=== PATIENT | male | born 1965 | race Two or more races ===

== ENCOUNTER 2021-10-06 13:16 | Inpatient (IN) | payer MEDICAID, OTHER ==
[~2021-10-06] VITALS: Ht 175.3 cm; Wt 117.5 kg
[2021-10-06] MEDS ORDERED: GLUCAGON HYDROCHLORIDE (RDNA) 1 MG VIAL IV ONE (14:15)
[2021-10-06 14:30] LABS: Lymphocytes # (auto) 2.2 10 ^3/uL (0.4-5.4); Mean Corpuscular Volume 79.6 fL (80.0-100.0); Monocytes # (auto) 0.9 10 ^3/uL (0-1.3)
[2021-10-06 14:31] LABS: Basophils # (auto) 0.1 10 ^3/uL (0-0.2); Basophils % (auto) 0.6 % (0.0-2.0); Eosinophils # (auto) 0.2 10 ^3/uL (0-0.8); Eosinophils % (auto) 1.2 % (0.0-7.0); Hematocrit 38.6 % (41.0-53.0); Hemoglobin 12.6 g/dL (13.5-17.5); Mean Corpuscular Hgb Conc. 32.7 g/dL (32.0-36.0); Monocytes % (auto) 7.4 % (0.0-12.0); Neutrophils # (auto) 9.5 10 ^3/uL (1.6-8.6); Neutrophils % (auto) 73.8 % (37.0-80.0); Nucleated Red Blood Cells % 0.1 %; Red Blood Cells 4.85 10^6/uL (4.5-5.90); Red Cell Distribution Width 16.4 % (11.8-14.3); White Blood Cell 12.8 10^3/uL (4.4-10.8)
[2021-10-06 14:40] LABS: Albumin 3.1 g/dL (3.4-5.0); Anion Gap 8 (5-15); BUN/Creatinine Ratio 18.7; Blood Urea Nitrogen 25 mg/dL (7-18); Calcium 8.8 mg/dL (8.5-10.1); Carbon Dioxide 24 mmol/L (21-32); Chloride 107 mmol/L (98-107); GFR African American 71 mL/min; GFR Non-African American 59 mL/min; Glucose 139 mg/dL (74-106); Magnesium 2.4 mg/dL (1.6-2.6); Potassium 4.3 mmol/L (3.5-5.1); Sodium 139 mmol/L (136-145)
[2021-10-06 14:49] LABS: Alanine Aminotransferase 133 U/L (16-61); Alkaline Phosphatase 104 U/L (45-117); Aspartate Aminotransferase 56 U/L (15-37); Bilirubin, Total 0.3 mg/dL (0.2-1.0); Total Protein 7.3 g/dL (6.4-8.2)
[2021-10-06] MEDS ORDERED: NITROGLYCERIN 0.4 MG SL TAB SL PRN (15:45)
[2021-10-06] MEDS ORDERED: hydrALAZINE HCL 20 MG/ML VL IV PRN (15:45)
[2021-10-06] MEDS: DOPamine 1600MCG/ML D5W 250 ML IV SCH (16:10)
[2021-10-06] MEDS ORDERED: NIFEdipine ER 30 MG TAB PO ONE (16:45)
[2021-10-06] MEDS ORDERED: LACTATED RINGER'S 1,000 ML IV ONE (16:45)
[2021-10-06] MEDS: SODIUM CHLORIDE 0.9% 1,000 ML IV SCH (17:31)
[2021-10-06] MEDS ORDERED: MORPHINE SULFATE INJ 2 MG/ml SYRG IV PRN (18:15)
[2021-10-06] MEDS ORDERED: LORazepam 0.5 MG TAB PO PRN (18:15)
[2021-10-06 18:45] VITALS: BP 144/63
[2021-10-06] MEDS ORDERED: IPRATROPIUM BROM 0.5 MG/2.5ML INH SOL NEB PRN (19:45)
[2021-10-06 20:06] LABS: Magnesium 2.2 mg/dL (1.6-2.6); Phosphorus 3.6 mg/dL (2.5-4.90)
[2021-10-06 21:06] LABS: Hepatitis C Antibody Negative (Negative)
[2021-10-06 21:07] LABS: Hepatitis A Ab IgM Negative; Hepatitis B Core IgM Negative
[2021-10-06] MEDS ORDERED: IPRATROPIUM BROM 0.5 MG/2.5ML INH SOL NEB SCH (22:00)
[2021-10-06] MEDS ORDERED: ATORVASTATIN 20 MG TAB PO SCH (22:00)
[2021-10-06 22:30] VITALS: BP 131/41
[2021-10-06 22:45] VITALS: BP 129/45
[2021-10-06 23:00] VITALS: BP_SYST 125; BP_SYST 131; BP_DIAS 41
[2021-10-06 23:15] VITALS: BP 133/50
[2021-10-06 23:45] VITALS: BP 125/44
[2021-10-07] VITALS (89 sets, daily range): BP systolic 115–155; BP diastolic 35–77
[2021-10-07] MEDS: DOPamine 1600MCG/ML D5W 250 ML IV SCH ×6 (00:07→22:54)
[2021-10-07 04:04] LABS: Basophils # (auto) 0.1 10 ^3/uL (0-0.2); Eosinophils # (auto) 0 10 ^3/uL (0-0.8); Neutrophils # (auto) 19.4 10 ^3/uL (1.6-8.6); White Blood Cell 23.1 10^3/uL (4.4-10.8)
[2021-10-07 04:08] LABS: Basophils % (auto) 0.3 % (0.0-2.0); Hematocrit 36.4 % (41.0-53.0); Hemoglobin 12.3 g/dL (13.5-17.5); Lymphocytes # (auto) 1.8 10 ^3/uL (0.4-5.4); Lymphocytes % (auto) 7.9 % (10.0-50.0); Mean Corpuscular Hemoglobin 26.8 pg (28.0-32.0); Mean Corpuscular Hgb Conc. 33.8 g/dL (32.0-36.0); Mean Corpuscular Volume 79.2 fL (80.0-100.0); Monocytes # (auto) 1.9 10 ^3/uL (0-1.3); Monocytes % (auto) 8.1 % (0.0-12.0); Neutrophils % (auto) 83.7 % (37.0-80.0); Nucleated Red Blood Cells % 0.1 %; Red Cell Distribution Width 16.6 % (11.8-14.3)
[2021-10-07 04:23] LABS: Magnesium 2.2 mg/dL (1.6-2.6); Potassium 4.7 mmol/L (3.5-5.1)
[2021-10-07 04:34] LABS: BUN/Creatinine Ratio 18.8; Bilirubin, Total 0.4 mg/dL (0.2-1.0); CRP High Sensitivity 1.46 mg/dL (< 0.3); Calcium 8.4 mg/dL (8.5-10.1); Phosphorus 4.5 mg/dL (2.5-4.90); Total Protein 7.2 g/dL (6.4-8.2)
[2021-10-07 04:35] LABS: INR 1.08 (0.9-1.15); Partial Thromboplastin Time 26.4 sec (23.6-33.0)
[2021-10-07 04:38] LABS: Thyroid Stimulating Hormone 0.48 uIU/mL (0.358-3.74)
[2021-10-07] MEDS: ONDANSETRON HCL 4 MG/2 ML VIAL IV PRN ×2 (05:47→21:30)
[2021-10-07] MEDS ORDERED: FUROSEMIDE 20 MG/2 ML VIAL IV SCH (06:00)
[2021-10-07] MEDS ORDERED: POTASSIUM CHL 20MEQ/100ML 100 ML IV SCH (07:45)
[2021-10-07] MEDS: cefTRIAXone 1GM/50ML D5W 50 ML IV SCH (08:57)
[2021-10-07] MEDS: SODIUM CHLORIDE 0.9% 1,000 ML IV SCH (09:25)
[2021-10-07] MEDS: ASPirin 81 mg TAB PO SCH (10:00)
[2021-10-07] MEDS: ENOXAPARIN SOD 40 MG/0.4 ML SYRINGE SC SCH (10:00)
[2021-10-07] MEDS: NIFEdipine ER 30 MG TAB PO SCH (10:00)
[2021-10-07] MEDS: AZITHROMYCIN 500MG/ 250ML 250 ML IV SCH (10:09)
[2021-10-07] MEDS: FAMOTIDINE (10MG/ML) 2ML VL IV SCH (10:09)
[2021-10-07] MEDS ORDERED: OPTISON 3ml Vial for INJ IV ONE (10:37)
[2021-10-07] MEDS ORDERED: DEXTROSE (50%) 50ML SYRG IV PRN (11:15)
[2021-10-07] MEDS: ACCU-CHEK COMFORT CURVE STRIP VI SCH ×3 (12:00→23:46)
[2021-10-07] MEDS: InsuLIN REG 1unit/0.01ml Soln (100units/ml) SC SCH ×3 (12:42→23:47)
[2021-10-07 13:22] LABS: Urine Bacteria FEW /hpf (None Seen); Urine Blood Negative /uL (Negative); Urine Hyaline Cast MOD /lpf (0 - 2); Urine WBC 2 /hpf (0 - 3)
[2021-10-07 13:41] LABS: Amphetamine Screen, Urine NEGATIVE (NEGATIVE); Barbiturate Scree,Urine NEGATIVE (NEGATIVE); Benzodiazephine Screen, Urine NEGATIVE (NEGATIVE); Cannabinoid Screen, Urine NEGATIVE (NEGATIVE); Cocaine Screen, Urine NEGATIVE (NEGATIVE); Opiate Scree,Urine NEGATIVE (NEGATIVE); Phencyclidine Screen, Urine NEGATIVE (NEGATIVE)
[2021-10-07] MEDS ORDERED: INSREGI SC (15:02)
[2021-10-07] MEDS ORDERED: ASPI-543 PO (15:05)
[2021-10-07] MEDS ORDERED: SIMV-8 PO (15:05)
[2021-10-07] MEDS ORDERED: HYDR12.56 PO (15:05)
[2021-10-07] MEDS ORDERED: BENA40TA8 PO (15:07)
[2021-10-07] MEDS ORDERED: AMLO-489 PO (15:07)
[2021-10-07] MEDS ORDERED: METF-370 PO (15:10)
[2021-10-07] MEDS: MORPHINE SULFATE INJ 2 MG/ml SYRG IV PRN (21:25)
[2021-10-07] MEDS ORDERED: FUROSEMIDE 20 MG/2 ML VIAL IV ONE (22:15)
[2021-10-07] MEDS ORDERED: FUROSEMIDE 20 MG/2 ML VIAL ONE (22:18)
[2021-10-08] VITALS (65 sets, daily range): BP systolic 94–170; BP diastolic 30–75
[2021-10-08] MEDS: DOPamine 1600MCG/ML D5W 250 ML IV SCH ×2 (01:47→07:38)
[2021-10-08 03:56] LABS: Basophils # (auto) 0 10 ^3/uL (0-0.2); Basophils % (auto) 0.2 % (0.0-2.0); Eosinophils # (auto) 0 10 ^3/uL (0-0.8); Eosinophils % (auto) 0.1 % (0.0-7.0); Neutrophils % (auto) 86.9 % (37.0-80.0)
[2021-10-08 03:59] LABS: Hematocrit 36.2 % (41.0-53.0); Hemoglobin 12.1 g/dL (13.5-17.5); Mean Corpuscular Hemoglobin 26.1 pg (28.0-32.0); Mean Corpuscular Hgb Conc. 33.4 g/dL (32.0-36.0); Mean Corpuscular Volume 78.3 fL (80.0-100.0); Monocytes # (auto) 1.5 10 ^3/uL (0-1.3); Monocytes % (auto) 7.8 % (0.0-12.0); Neutrophils # (auto) 17.1 10 ^3/uL (1.6-8.6); Red Blood Cells 4.62 10^6/uL (4.5-5.90); Red Cell Distribution Width 16.4 % (11.8-14.3); White Blood Cell 19.7 10^3/uL (4.4-10.8)
[2021-10-08] MEDS: ONDANSETRON HCL 4 MG/2 ML VIAL IV PRN (04:19)
[2021-10-08 04:21] LABS: Albumin 2.8 g/dL (3.4-5.0); BUN/Creatinine Ratio 20.5; Calcium 8.4 mg/dL (8.5-10.1); Potassium 4.9 mmol/L (3.5-5.1)
[2021-10-08 04:24] LABS: Bilirubin, Total 0.3 mg/dL (0.2-1.0); Total Protein 7.1 g/dL (6.4-8.2)
[2021-10-08] MEDS: ACCU-CHEK COMFORT CURVE STRIP VI SCH ×4 (06:03→23:31)
[2021-10-08] MEDS: InsuLIN REG 1unit/0.01ml Soln (100units/ml) SC SCH ×4 (06:03→23:30)
[2021-10-08] MEDS: MORPHINE SULFATE INJ 2 MG/ml SYRG IV PRN (07:06)
[2021-10-08] MEDS: cefTRIAXone 1GM/50ML D5W 50 ML IV SCH (08:32)
[2021-10-08] MEDS ORDERED: FUROSEMIDE 20 MG/2 ML VIAL IV ONE (09:30)
[2021-10-08] MEDS: ASPirin 81 mg TAB PO SCH (10:00)
[2021-10-08] MEDS: NIFEdipine ER 30 MG TAB PO SCH (10:00)
[2021-10-08] MEDS: ENOXAPARIN SOD 40 MG/0.4 ML SYRINGE SC SCH (10:00)
[2021-10-08] MEDS: FAMOTIDINE (10MG/ML) 2ML VL IV SCH (10:06)
[2021-10-08] MEDS: AZITHROMYCIN 500MG/ 250ML 250 ML IV SCH (10:06)
[2021-10-08] MEDS ORDERED: LIDOCAINE 2%HCL (LOCAL ANESTH.) INJ 10ml MDV ONE (14:11)
[2021-10-08] MEDS ORDERED: VANCOMYCIN HCL 1000 MG VL ONE (14:14)
[2021-10-08] MEDS ORDERED: VANCOMYCIN 1GM/250ML 250 ML IV ONE (14:15)
[2021-10-08] MEDS ORDERED: MIDAZOLAM HCL 2MG/2ML 2ml VIAL (1mg/ml) ONE (14:15)
[2021-10-08] MEDS ORDERED: fentaNYL CITRATE 100 MCG/2 ML VL ONE (14:15)
[2021-10-08] MEDS: guaiFENesin 200 MG/10 ML UD PO PRN (19:15)
[2021-10-08] MEDS: HYDROcodone-ACET 5/325MG TAB PO PRN (23:36)
[2021-10-09] VITALS (14 sets, daily range): BP systolic 104–148; BP diastolic 45–68
[2021-10-09 04:19] LABS: Basophils # (auto) 0.1 10 ^3/uL (0-0.2); Basophils % (auto) 0.4 % (0.0-2.0); Eosinophils # (auto) 0.1 10 ^3/uL (0-0.8); Eosinophils % (auto) 0.9 % (0.0-7.0); Hematocrit 32.5 % (41.0-53.0); Hemoglobin 10.7 g/dL (13.5-17.5); Lymphocytes # (auto) 1.7 10 ^3/uL (0.4-5.4); Lymphocytes % (auto) 14.6 % (10.0-50.0); Mean Corpuscular Hemoglobin 26.1 pg (28.0-32.0); Monocytes # (auto) 0.9 10 ^3/uL (0-1.3); Monocytes % (auto) 7.6 % (0.0-12.0); Neutrophils # (auto) 8.9 10 ^3/uL (1.6-8.6); Neutrophils % (auto) 76.5 % (37.0-80.0); Red Blood Cells 4.11 10^6/uL (4.5-5.90); Red Cell Distribution Width 16.4 % (11.8-14.3); White Blood Cell 11.7 10^3/uL (4.4-10.8)
[2021-10-09 04:50] LABS: BUN/Creatinine Ratio 23.5; Calcium 8.3 mg/dL (8.5-10.1); Potassium 4.4 mmol/L (3.5-5.1)
[2021-10-09] MEDS: InsuLIN REG 1unit/0.01ml Soln (100units/ml) SC SCH ×4 (06:00→23:17)
[2021-10-09] MEDS: ACCU-CHEK COMFORT CURVE STRIP VI SCH ×4 (06:07→23:05)
[2021-10-09] MEDS: HYDROcodone-ACET 5/325MG TAB PO PRN ×2 (06:10→18:28)
[2021-10-09] MEDS: ASPirin 81 mg TAB PO SCH (09:50)
[2021-10-09] MEDS: cefTRIAXone 1GM/50ML D5W 50 ML IV SCH (09:50)
[2021-10-09] MEDS: ENOXAPARIN SOD 40 MG/0.4 ML SYRINGE SC SCH (09:50)
[2021-10-09] MEDS: AZITHROMYCIN 500MG/ 250ML 250 ML IV SCH (09:50)
[2021-10-09] MEDS: NIFEdipine ER 30 MG TAB PO SCH (09:51)
[2021-10-09] MEDS: FAMOTIDINE (10MG/ML) 2ML VL IV SCH (09:51)
[2021-10-09] MEDS ORDERED: FUROSEMIDE 20 MG/2 ML VIAL IV ONE (13:30)
[2021-10-09] MEDS ORDERED: ALBUTEROL SULF 2.5 MG/0.5ML(0.5%) NEB SOLN NEB PRN (13:30)
[2021-10-09] MEDS: guaiFENesin 200 MG/10 ML UD PO PRN (19:56)
[2021-10-10] MEDS: guaiFENesin 200 MG/10 ML UD PO PRN ×2 (04:36→19:49)
[2021-10-10 04:53] VITALS: BP 143/70
[2021-10-10] MEDS: InsuLIN REG 1unit/0.01ml Soln (100units/ml) SC SCH ×4 (05:06→23:46)
[2021-10-10] MEDS: ACCU-CHEK COMFORT CURVE STRIP VI SCH ×3 (05:06→18:00)
[2021-10-10 05:30] LABS: Eosinophils # (auto) 0.2 10 ^3/uL (0-0.8); Eosinophils % (auto) 2.4 % (0.0-7.0); Hemoglobin 11.5 g/dL (13.5-17.5); Monocytes # (auto) 0.7 10 ^3/uL (0-1.3); Neutrophils # (auto) 6.9 10 ^3/uL (1.6-8.6); Nucleated Red Blood Cells % 0.1 %
[2021-10-10 05:31] LABS: Basophils # (auto) 0.1 10 ^3/uL (0-0.2); Basophils % (auto) 0.8 % (0.0-2.0); Hematocrit 33.3 % (41.0-53.0); Lymphocytes # (auto) 1.3 10 ^3/uL (0.4-5.4); Lymphocytes % (auto) 13.6 % (10.0-50.0); Mean Corpuscular Hemoglobin 26.9 pg (28.0-32.0); Mean Corpuscular Hgb Conc. 34.5 g/dL (32.0-36.0); Monocytes % (auto) 7.6 % (0.0-12.0); Neutrophils % (auto) 75.6 % (37.0-80.0); Red Blood Cells 4.26 10^6/uL (4.5-5.90); Red Cell Distribution Width 16.5 % (11.8-14.3); White Blood Cell 9.2 10^3/uL (4.4-10.8)
[2021-10-10 05:49] LABS: BUN/Creatinine Ratio 25.3; Calcium 8.6 mg/dL (8.5-10.1); Magnesium 2.5 mg/dL (1.6-2.6); Potassium 4.1 mmol/L (3.5-5.1)
[2021-10-10 08:41] VITALS: BP 140/63
[2021-10-10] MEDS: cefTRIAXone 1GM/50ML D5W 50 ML IV SCH (09:14)
[2021-10-10] MEDS: NIFEdipine ER 30 MG TAB PO SCH (11:31)
[2021-10-10] MEDS: FAMOTIDINE (10MG/ML) 2ML VL IV SCH (11:31)
[2021-10-10] MEDS: ENOXAPARIN SOD 40 MG/0.4 ML SYRINGE SC SCH (11:31)
[2021-10-10] MEDS: AZITHROMYCIN 500MG/ 250ML 250 ML IV SCH (11:32)
[2021-10-10] MEDS: ASPirin 81 mg TAB PO SCH (11:32)
[2021-10-10 13:00] VITALS: BP 139/65
[2021-10-10 17:00] VITALS: BP 139/69
[2021-10-10 22:00] VITALS: BP 140/68
[2021-10-11 05:00] VITALS: BP 153/72
[2021-10-11] MEDS: InsuLIN REG 1unit/0.01ml Soln (100units/ml) SC SCH ×3 (05:17→17:46)
[2021-10-11] MEDS: ACCU-CHEK COMFORT CURVE STRIP VI SCH ×4 (05:17→17:18)
[2021-10-11] MEDS: guaiFENesin 200 MG/10 ML UD PO PRN (05:18)
[2021-10-11 09:00] VITALS: BP 143/69
[2021-10-11] MEDS: ENOXAPARIN SOD 40 MG/0.4 ML SYRINGE SC SCH ×2 (09:39→10:00)
[2021-10-11] MEDS: cefTRIAXone 1GM/50ML D5W 50 ML IV SCH (09:39)
[2021-10-11] MEDS: FAMOTIDINE (10MG/ML) 2ML VL IV SCH ×2 (09:39→10:00)
[2021-10-11] MEDS: ASPirin 81 mg TAB PO SCH ×2 (09:39→10:00)
[2021-10-11] MEDS: NIFEdipine ER 30 MG TAB PO SCH ×2 (09:40→10:00)
[2021-10-11] MEDS: AZITHROMYCIN 500MG/ 250ML 250 ML IV SCH (12:25)
[2021-10-11 13:14] VITALS: BP 156/72
[2021-10-11] MEDS ORDERED: ALBUAER3 IN (14:53)
[2021-10-11] MEDS ORDERED: LEVO750T8 PO (14:53)
[2021-10-11 16:44] VITALS: BP 143/69
[2021-10-11 17:21] VITALS: BP 146/80
== END 2021-10-11 18:49 | disposition home or self-care (01) | DRG 710 ==
LOC: ER 13:16 → TELE 15:46 → ICU WEST 21:42 → TELE-WESTW 10-09 21:05
PROVIDERS: ADMIT Hospitalist; ATTEND Internal Medicine
PROC: 0JH606Z Insertion of Pacemaker, Dual Chamber into Chest Subcutaneous Tissue and Fascia, Open Approach (ICD-10-PCS; principal; 2021-10-08)
PROC: 02HK3JZ Insertion of Pacemaker Lead into Right Ventricle, Percutaneous Approach (ICD-10-PCS; 2021-10-08)
PROC: 02H63JZ Insertion of Pacemaker Lead into Right Atrium, Percutaneous Approach (ICD-10-PCS; 2021-10-08)
PROC: 5A09357 Assistance with Respiratory Ventilation, Less than 24 Consecutive Hours, Continuous Positive Airway Pressure (ICD-10-PCS; 2021-10-08)
DX: A41.9 Sepsis, unspecified organism (principal); J96.00 Acute respiratory failure, unspecified whether with hypoxia or hypercapnia; N17.0 Acute kidney failure with tubular necrosis; I44.2 Atrioventricular block, complete; I50.33 Acute on chronic diastolic (congestive) heart failure; J18.9 Pneumonia, unspecified organism; I13.0 Hypertensive heart and chronic kidney disease with heart failure and stage 1 through stage 4 chronic kidney disease, or unspecified chronic kidney disease; E88.09 Other disorders of plasma-protein metabolism, not elsewhere classified; I27.21 Secondary pulmonary arterial hypertension; I21.A1 Myocardial infarction type 2; B19.10 Unspecified viral hepatitis B without hepatic coma; E11.22 Type 2 diabetes mellitus with diabetic chronic kidney disease; D50.9 Iron deficiency anemia, unspecified; E11.40 Type 2 diabetes mellitus with diabetic neuropathy, unspecified; E66.01 Morbid (severe) obesity due to excess calories; E78.5 Hyperlipidemia, unspecified; J44.0 Chronic obstructive pulmonary disease with (acute) lower respiratory infection; G47.30 Sleep apnea, unspecified; I25.10 Atherosclerotic heart disease of native coronary artery without angina pectoris; K21.9 Gastro-esophageal reflux disease without esophagitis; N18.31 Chronic kidney disease, stage 3a; I07.1 Rheumatic tricuspid insufficiency; F17.200 Nicotine dependence, unspecified, uncomplicated; R79.89 Other specified abnormal findings of blood chemistry; R00.1 Bradycardia, unspecified; D72.829 Elevated white blood cell count, unspecified; Z71.6 Tobacco abuse counseling; Z79.4 Long term (current) use of insulin; Z98.1 Arthrodesis status; Z68.38 Body mass index [BMI] 38.0-38.9, adult; Z20.822 Contact with and (suspected) exposure to COVID-19
CPT/HCPCS: 36415; 70450; 71045; 71250; 80048; 80053; 80061; 80074; 80307; 81001; 82550; 82728; 82962; 83036; 83605; 83615; 83690; 83735; 83880; 84100; 84156; 84439; 84443; 84484; 85025; 85379; 85610; 85652; 85730; 86141; 87040; 87070; 87081; 87086; 87205; 93005; 93306; 93886; 93970; 94640; 94660; 96361; 96374; 97163; 99152; 99153; C1785; G0378; J0696; J1815; J2001; J2250; J2405; J3490; Q9956

== ENCOUNTER 2021-11-21 15:13 | Emergency (ER) | payer MEDICAID ==
[~2021-11-21] VITALS: Ht 180.3 cm; Wt 114.8 kg
[~2021-11-21 15:13] MED LIST: ALBUAER3 IN; AMLO-489 PO; ASPI-543 PO; BENA40TA8 PO; HYDR12.56 PO; INSREGI SC; LEVO750T8 PO; METF-370 PO; SIMV-8 PO
[2021-11-21 15:49] LABS: Basophils # (auto) 0.1 10 ^3/uL (0-0.2); Eosinophils # (auto) 0.3 10 ^3/uL (0-0.8); Hemoglobin 13.6 g/dL (13.5-17.5); Nucleated Red Blood Cells % 0.1 %
[2021-11-21 15:51] LABS: Basophils % (auto) 0.6 % (0.0-2.0); Eosinophils % (auto) 2.5 % (0.0-7.0); Hematocrit 42.9 % (41.0-53.0); Lymphocytes # (auto) 3.3 10 ^3/uL (0.4-5.4); Mean Corpuscular Hemoglobin 25.3 pg (28.0-32.0); Mean Corpuscular Hgb Conc. 31.8 g/dL (32.0-36.0); Mean Corpuscular Volume 79.4 fL (80.0-100.0); Monocytes # (auto) 0.9 10 ^3/uL (0-1.3); Monocytes % (auto) 6.6 % (0.0-12.0); Neutrophils # (auto) 8.6 10 ^3/uL (1.6-8.6); Neutrophils % (auto) 65.3 % (37.0-80.0); Red Cell Distribution Width 17.1 % (11.8-14.3); White Blood Cell 13.1 10^3/uL (4.4-10.8)
[2021-11-21 16:05] LABS: Albumin 3.8 g/dL (3.4-5.0); Calcium 9.6 mg/dL (8.5-10.1); Magnesium 2.4 mg/dL (1.6-2.6)
[2021-11-21 16:08] LABS: Bilirubin, Total 0.2 mg/dL (0.2-1.0); Total Protein 8.2 g/dL (6.4-8.2)
[2021-11-21] MEDS ORDERED: CEPH500C PO (16:35)
[2021-11-21 16:49] LABS: INR 0.96 (0.9-1.15); Partial Thromboplastin Time 28.2 sec (23.6-33.0)
[2021-11-21 17:16] LABS: Urine Bacteria NONE SEEN /hpf (None Seen); Urine Blood Negative /uL (Negative); Urine WBC <1 /hpf (0 - 3)
[2021-11-21 22:08] VITALS: BP 165/84
== END 2021-11-21 18:23 | disposition home or self-care (01) ==
LOC: ER 15:13
DX: R07.89 Other chest pain (principal); D72.829 Elevated white blood cell count, unspecified; E11.9 Type 2 diabetes mellitus without complications; E78.5 Hyperlipidemia, unspecified; I10 Essential (primary) hypertension; Z95.0 Presence of cardiac pacemaker
CPT/HCPCS: 36415; 71045; 80053; 81001; 83735; 83880; 84443; 84484; 85025; 85610; 85730; 93005

== ENCOUNTER 2021-12-09 14:19 | Emergency (ER) | payer MEDICAID ==
[~2021-12-09] VITALS: Ht 180.3 cm; Wt 112.9 kg
[2021-12-09 14:19] VITALS: BP 159/74
[~2021-12-09 14:19] MED LIST changes: +CEPH500C PO
[2021-12-09 15:04] LABS: Eosinophils # (auto) 0.2 10 ^3/uL (0-0.8); Monocytes # (auto) 0.7 10 ^3/uL (0-1.3)
[2021-12-09 15:05] LABS: Basophils # (auto) 0.1 10 ^3/uL (0-0.2); Basophils % (auto) 0.5 % (0.0-2.0); Hemoglobin 13.3 g/dL (13.5-17.5); Lymphocytes # (auto) 2.3 10 ^3/uL (0.4-5.4); Lymphocytes % (auto) 18.2 % (10.0-50.0); Mean Corpuscular Hemoglobin 24.8 pg (28.0-32.0); Mean Corpuscular Hgb Conc. 31.6 g/dL (32.0-36.0); Mean Corpuscular Volume 78.6 fL (80.0-100.0); Monocytes % (auto) 5.7 % (0.0-12.0); Neutrophils # (auto) 9.1 10 ^3/uL (1.6-8.6); Neutrophils % (auto) 73.6 % (37.0-80.0); Red Blood Cells 5.34 10^6/uL (4.5-5.90); White Blood Cell 12.3 10^3/uL (4.4-10.8)
[2021-12-09 15:14] LABS: Albumin 3.5 g/dL (3.4-5.0); Potassium 4.1 mmol/L (3.5-5.1)
[2021-12-09 15:17] LABS: BUN/Creatinine Ratio 14.8; Bilirubin, Total 0.3 mg/dL (0.2-1.0); Total Protein 8.5 g/dL (6.4-8.2)
== END 2021-12-09 17:53 | disposition home or self-care (01) ==
LOC: ER 14:19
DX: R07.89 Other chest pain (principal); E11.9 Type 2 diabetes mellitus without complications; E78.5 Hyperlipidemia, unspecified; I10 Essential (primary) hypertension; I25.10 Atherosclerotic heart disease of native coronary artery without angina pectoris
CPT/HCPCS: 36415; 71045; 80053; 84484; 85025; 93005